=== PATIENT | female | born 1980 | race Caucasian/White ===

== ENCOUNTER 2018-08-12 08:04 | Day surgery (SDC) | payer OTHER ==
[~2018-08-12 08:04] MED LIST: CEFAZOLIN 2 GM/50 ML (PMX) 50 ML IVPB; LIDOCAINE 2% (SDV) 5 ML INJ; SOD CHLORIDE 0.9% 1,000 ML IV
[2018-08-12] MEDS ORDERED: METOCLOPRAMIDE 10 MG INJ IV (11:00)
[2018-08-12] MEDS ORDERED: MEPERIDINE 25 MG INJ IV (11:00)
[2018-08-12] MEDS ORDERED: ONDANSETRON 4 MG INJ IV (11:00)
[2018-08-12] MEDS ORDERED: ALBUTEROL 0.083% (NEB) 2.5 MG/3 ML AMP HHN (11:00)
[2018-08-12] MEDS ORDERED: FENTAnyl 50 MCG/ML VIAL IV ×2 (11:00)
[2018-08-12] MEDS ORDERED: DIPHENHYDRAMINE 50 MG INJ IV (11:00)
[2018-08-12] MEDS ORDERED: HYDROmorphONE 1 MG/5 ML IV SYRINGE IV ×3 (11:00)
[2018-08-12] MEDS ORDERED: FENTAnyl 50 MCG/ML VIAL (11:22)
[2018-08-12] MEDS ORDERED: ROCURONIUM 50 MG INJ (11:38)
[2018-08-12] MEDS ORDERED: PROPOFOL 20 ML (11:38)
[2018-08-12] MEDS ORDERED: CEFAZOLIN 1 GM INJ (11:39)
[2018-08-12] MEDS ORDERED: SUGAMMADEX SODIUM 200 MG/2 ML VIAL IV (11:39)
[2018-08-12] MEDS ORDERED: SUCCINYLCHOLINE CHLORIDE 100 MG/5 ML SYG IV (11:39)
[2018-08-12] MEDS ORDERED: HYDROCODONE/APAP (7.5/325) TAB PO (12:30)
== END 2018-08-12 14:10 | disposition home or self-care (01) ==
LOC: SDS 08:04
DX: N61.0 Mastitis without abscess (principal); N60.32 Fibrosclerosis of left breast
CPT/HCPCS: 19301; 88307